=== PATIENT | female | born 1975 | race Caucasian/White ===

== ENCOUNTER → 2019-08-08 08:21 | Outpatient (BNVA) | payer BC, SELFPAY | PROVIDERS: Family Provider Family Medicine; PCP Family Medicine; Visit Provider Family Medicine | DX: R30.0 Dysuria (principal); Z13.6 Encounter for screening for cardiovascular disorders; F40.10 Social phobia, unspecified; F17.219 Nicotine dependence, cigarettes, with unspecified nicotine-induced disorders; E55.9 Vitamin D deficiency, unspecified | CPT/HCPCS: 80053; 80061; 81000; 82306; 85025; 87077; 87086; 87186 ==

== ENCOUNTER → 2019-09-22 16:30 | Outpatient (BNVA) | payer BC, SELFPAY | PROVIDERS: Family Provider Family Medicine; PCP Family Medicine; Referring Provider Family Medicine; Visit Provider Family Medicine | DX: Z13.6 Encounter for screening for cardiovascular disorders (principal) | CPT/HCPCS: 80053 ==

== ENCOUNTER → 2019-11-03 11:00 | Outpatient (BNVA) | payer BC, SELFPAY | PROVIDERS: Family Provider Family Medicine; PCP Family Medicine; Referring Provider Family Medicine; Visit Provider Family Medicine | DX: E55.9 Vitamin D deficiency, unspecified (principal); E78.00 Pure hypercholesterolemia, unspecified | CPT/HCPCS: 80053; 80061; 82652 ==

== ENCOUNTER 2019-11-26 15:01 | Outpatient (CLI) | payer BC, SELFPAY ==
--- NOTE | 2019-11-26 15:30 | MM_ITS ---
WS: [id number] SCREENING DIGITAL MAMMOGRAM WITH CAD HISTORY: screening COMPARISON: None available. Bilateral CC and MLO views submitted. Computer aided detection analyzed. Breast composition: The breasts are heterogeneously dense, which may obscure small masses. There is a n asymmetry measuring 14 mm in the superior LEFT breast on the MLO projection only. Otherwise no susp icious masses or calcifications. LEFT breast: Spot compression views (exaggerated lateral CC and MLO). True ML. Ultrasound to follow i f abnormality persists. MM/[id number] IMPRESSION: BI-RADS: 0-Incomplete: Need additional imaging evaluation FOLLOW UP: Need Additional Imaging
== END 2019-11-26 15:02 | disposition home or self-care (01) ==
LOC: RADSHAW 15:05
PROVIDERS: PCP Family Medicine; Visit Provider Obstetrics & Gynecology
DX: Z12.31 Encounter for screening mammogram for malignant neoplasm of breast (principal); N64.89 Other specified disorders of breast
CPT/HCPCS: 77067

== ENCOUNTER 2019-12-05 14:12 | Outpatient (CLI) | payer BC, SELFPAY ==
--- NOTE | 2019-12-05 14:30 | MM_ITS ---
WS: [id number] Left breast diagnostic digital mammogram, 12/05/2019 Clinical Data: abnormal mammogram Comparison: 11/26/2019 Findings: There is an asymmetry in the superior aspect of the left breast. On the CC and ML views this asymmetr y appears to be linear. There are no associated calcifications or spiculations. MM/[place] [id number] Impression: 1. Asymmetry in upper outer quadrant of the left breast but no focal mass. 2. Left breast ultrasound will be done. BIRADS: 2-Benign FOLLOW UP: See Report The CAD fact checker was used.
--- NOTE | 2019-12-05 15:45 | US_ITS ---
WS: [id number] Left breast ultrasound, 12/05/2019 Clinical Data: abnormal mammogram Comparison: Mammogram, 12/05/2019 Findings: In the upper-outer quadrant of the left breast there are no definite masses. There is a simple cyst w ith greatest dimension of 0.71 cm. No definite abnormalities are seen. US/US breast LT limited* [id number] Impression: 1. Simple cyst in upper outer quadrant of left breast corresponding to the rigo on noted on the mammogram 2. Return to annual screening mammograms. BIRADS: 2-Benign FOLLOW UP: 1 Year Follow-up
== END 2019-12-05 14:13 | disposition home or self-care (01) ==
LOC: RADSHAW 14:16
PROVIDERS: PCP Family Medicine; Visit Provider Obstetrics & Gynecology
DX: R92.8 Other abnormal and inconclusive findings on diagnostic imaging of breast (principal); N60.02 Solitary cyst of left breast
CPT/HCPCS: 76642; 77065

== ENCOUNTER → 2020-05-12 14:35 | Outpatient (BNVA) | payer BC, SELFPAY | PROVIDERS: PCP Family Medicine; Visit Provider Nurse Practitioner Family | DX: Z20.828 Contact with and (suspected) exposure to other viral communicable diseases (principal) | CPT/HCPCS: 87635 ==

== ENCOUNTER 2020-05-28 06:00 | Outpatient (RCR) | payer BC, SELFPAY | END 2020-06-21 23:59 | disposition home or self-care (01) | LOC: MPT 06:00 | PROVIDERS: PCP Family Medicine; Referring Provider Family Medicine; Visit Provider Family Medicine | DX: M54.42 Lumbago with sciatica, left side (principal); G89.29 Other chronic pain | CPT/HCPCS: 97110; 97140; 97161; 97530 ==

== ENCOUNTER 2020-06-22 06:00 | Outpatient (RCR) | payer BC, SELFPAY | END 2020-07-22 23:59 | disposition home or self-care (01) | LOC: MPT 06:00 | PROVIDERS: PCP Family Medicine; Referring Provider Family Medicine; Visit Provider Family Medicine | DX: M54.42 Lumbago with sciatica, left side (principal); G89.29 Other chronic pain | CPT/HCPCS: 97530 ==

== ENCOUNTER → 2020-07-28 08:20 | Outpatient (BNVA) | payer BC, SELFPAY | PROVIDERS: PCP Family Medicine; Visit Provider Family Medicine | DX: E78.5 Hyperlipidemia, unspecified (principal); F40.10 Social phobia, unspecified; M54.42 Lumbago with sciatica, left side; F17.219 Nicotine dependence, cigarettes, with unspecified nicotine-induced disorders; G89.29 Other chronic pain | CPT/HCPCS: 80053 ==

== ENCOUNTER → 2020-09-23 14:00 | Outpatient (BNVA) | payer BC, SELFPAY | PROVIDERS: PCP Family Medicine; Visit Provider Obstetrics & Gynecology | DX: Z12.4 Encounter for screening for malignant neoplasm of cervix (principal); Z12.39 Encounter for other screening for malignant neoplasm of breast | CPT/HCPCS: 88175 ==

== ENCOUNTER 2020-11-27 10:08 | Outpatient (CLI) | payer BC, SELFPAY ==
--- NOTE | 2020-11-27 10:30 | MM_ITS ---
WS: [id number] BILATERAL DIGITAL SCREENING MAMMOGRAPHY WITH CAD CLINICAL INFORMATION: Z12.39 - Encounter for other screening for malignant neop... HISTORY: Screening mammogram. No current complaints. COMPARISON: December 05, 2019 TECHNIQUE: Bilateral CC and MLO views. FINDINGS: The breasts are composed of heterogeneous fibroglandular density tissue, which can limit the detectio n of small underlying mass lesions. No suspicious mass, asymmetry, calcifications, or architectural d istortion. No evidence of malignancy. MM/[place] [id number] IMPRESSION: BI-RADS: 1-Negative FOLLOW UP: 1 Year Follow-up Recommend return to annual screening mammography.
== END 2020-11-27 10:09 | disposition home or self-care (01) ==
LOC: RADSHAW 10:11
PROVIDERS: PCP Family Medicine; Visit Provider Obstetrics & Gynecology
DX: Z12.31 Encounter for screening mammogram for malignant neoplasm of breast (principal)
CPT/HCPCS: 77067

== ENCOUNTER → 2021-06-18 08:43 | Outpatient (BNVA) | payer BC, SELFPAY | PROVIDERS: PCP Family Medicine; Visit Provider Family Medicine | DX: E55.9 Vitamin D deficiency, unspecified (principal); E78.5 Hyperlipidemia, unspecified | CPT/HCPCS: 80053; 80061; 82306; 85025 ==

== ENCOUNTER → 2021-11-30 12:26 | Outpatient (BNVA) | payer BC, SELFPAY | PROVIDERS: PCP Family Medicine; Visit Provider Emergency Medicine | DX: R69 Illness, unspecified (principal); B34.9 Viral infection, unspecified | CPT/HCPCS: 87071; 87426; 87880 ==

== ENCOUNTER → 2021-12-17 08:48 | Outpatient (BNVA) | payer BC, SELFPAY | PROVIDERS: PCP Family Medicine; Visit Provider Family Medicine | DX: E78.5 Hyperlipidemia, unspecified (principal); E55.9 Vitamin D deficiency, unspecified; Z86.39 Personal history of other endocrine, nutritional and metabolic disease; R53.83 Other fatigue; Z12.31 Encounter for screening mammogram for malignant neoplasm of breast; F40.10 Social phobia, unspecified; G89.29 Other chronic pain; M54.42 Lumbago with sciatica, left side; H69.82 Other specified disorders of Eustachian tube, left ear; K21.9 Gastro-esophageal reflux disease without esophagitis | CPT/HCPCS: 80053; 82306; 84443 ==

== ENCOUNTER → 2022-06-27 09:04 | Outpatient (BNVA) | payer BC, SELFPAY | PROVIDERS: PCP Family Medicine; Visit Provider Family Medicine | DX: E78.5 Hyperlipidemia, unspecified (principal); D50.9 Iron deficiency anemia, unspecified; F50.89 Other specified eating disorder; Z86.39 Personal history of other endocrine, nutritional and metabolic disease | CPT/HCPCS: 80053; 80061; 82306; 82728; 83550; 85025 ==

== ENCOUNTER 2022-07-07 10:40 | Outpatient (CLI) | payer BC, SELFPAY ==
--- NOTE | 2022-07-07 10:53 | MM_ITS ---
WS: [id number] BILATERAL SCREENING DIGITAL TOMOSYNTHESIS MAMMOGRAM WITH CAD HISTORY: screening mammogram COMPARISON: 11/27/2020, 11/26/2019 Bilateral CC and MLO views with tomosynthesis and synthetic mammography submitted. Computer aided det ection analyzed. Breast composition: There are scattered areas of fibroglandular density. No suspicious masses, microc alcifications or architectural distortion. Well-circumscribed nodule anterior RIGHT breast towards 9: 00 stable since 11/26/2019. MM/[place] [id number] IMPRESSION: BI-RADS: 2-Benign FOLLOW UP: 1 Year Follow-up
== END 2022-07-07 10:41 | disposition home or self-care (01) ==
LOC: RAD 10:44
PROVIDERS: PCP Family Medicine; Visit Provider Family Medicine
DX: Z12.31 Encounter for screening mammogram for malignant neoplasm of breast (principal)
CPT/HCPCS: 77063; 77067; 80053; 80061; 82306; 82728; 83550; 85025

== ENCOUNTER → 2022-11-25 12:10 | Outpatient (BNVA) | payer BC, SELFPAY | PROVIDERS: PCP Family Medicine; Visit Provider Family Medicine | DX: D50.9 Iron deficiency anemia, unspecified (principal); E78.5 Hyperlipidemia, unspecified; K21.9 Gastro-esophageal reflux disease without esophagitis | CPT/HCPCS: 82728; 83550; 85025 ==

== ENCOUNTER 2023-01-20 08:57 | Day surgery (SDC) | payer BC, SELFPAY ==
[2023-01-18 12:16] VITALS: BMI 22.9
[2023-01-20 09:19] LABS: OR HCG Qualitative Urine Negative (Negative)
[2023-01-20 09:21] VITALS: BP 125/90; PULSE 80; RESP 18; TEMP 36.6; O2SAT 94
[2023-01-20] MEDS: sodium chloride 0.9% 1,000 ML 30 ML IV (09:28)
--- NOTE | 2023-01-20 09:48 | ANES.PREANE2 ---
Pre-Anesthetic Assessment Height/Weight: Height 1.78 m Weight 72.575 kg Temp Pulse Resp BP Pulse Ox O2 Del Method 97.8 F 80 18 125/90 94 Room Air 01/20/23 09:21 01/20/23 09:21 01/20/23 09:21 01/20/23 09:21 01/20/23 09:21 01/20/23 09:21 Preop Diagnosis: gerd, screening Operation Date: 01/20/23 10:00 Proposed Procedures p Colonoscopy 51417 egd 23514 K21.9,Z12.11(Not Applicable) - Carlos Manuel Phillips DO s EGD(Not Applicable) - Carlos Manuel Phillips DO Was Beta Isreal taken within 24 hours: N/A Was Clonidine taken within 24 hours: N/A Last intake: Intake Last Liquid Date 01/19/23 Last Liquid Time 20:00 Last Solid Date 01/18/23 Last Solid Time 20:00 Social Tobacco and No alcohol last cig last night Exam alert, oriented x 3, clear to auscultation bilaterally and regular rate & rhythm Airway Submandibular: within normal limits Cervical ROM: within normal limits Mallampati: Class I Comments: Comments: very poor d entition. missing many on the front left, prominent incisors History/ROS No significant history except as noted and No significant complaints Pulmonary smoking CV/HEM Hypertension None reported GI Gastroesophageal Reflux Disease Metabolic Thyroid Disease nodule lower right side Musc/skel None reported Neuropsych None reported Anesthetic Plan ASA status: 2 Anesthesia: Anesthesia Evaluation and MAC Risk of > 500 ml blood loss (7ml/kg in children): Yes, adequate IV access and fluids planned Medications/Allergies Home Medications Medication Instructions Recorded Confirmed Last Taken Type cholecalciferol (vitamin D3) 50 50 mcg PO DAILY 09/23/20 01/18/23 01/19/23 History mcg (2,000 unit) capsule duloxetine 60 mg capsule,delayed 60 mg PO DAILY #90 caps 10/14/22 01/18/23 01/19/23 Rx release omeprazole 40 mg capsule,delayed 40 mg PO DAILY #90 caps 11/25/22 01/18/23 01/19/23 Rx release atorvastatin 10 mg tablet 10 mg PO DAILY 01/18/23 01/18/23 01/19/23 History cetirizine 10 mg tablet (Zyrtec) 10 mg PO DAILY 09/01/18/23 01/19/23 History ferrous sulfate 325 mg (65 mg 65 mg PO DAILY 01/18/23 01/18/23 01/19/23 History iron) capsule,extended release Allergies Allergy/AdvReac Type Severity Reaction Status Date / Time No Known Allergies Allergy Verified 01/20/23 09:13 Current Medications Generic Name Dose Route Start Last Admin Trade Name Daniel PRN Reason Stop Dose Admin Sodium Chloride 1,000 mls @ 30 mls/hr 01/20/23 09:15 01/20/23 09:28 Sodium Chloride 0.9% IV 01/21/23 09:14 30 mls/hr .Q24H OPAL Administration PFSH Anesthesia Medical History Dyslipidemia Diagnosed in 2019 and is on medication managed by her primary care provider No pertinent past medical history Denies diabetes, asthma, hypertension, seizures, DVT/PE Her primary care provider is Dr. Wood. Social anxiety disorder Diagnosed in 2014 and symptoms of anxiety are controlled with medication managed by her primary care provider. She does not see a therapist. Thyroid nodule Has had a thyroid nodule identified since about 2017. She follows up with an case management manager in [place]-Dr. Tucker(first name). She was told she does not need any further follow-up and that everything is stable. Surgical History S/P LEEP LEEP procedure performed by Dr. Garcia for abnormal Pap smear---2003. Patient does not know details of this surgery or pathology however states that she was told she can do routine testing. S/P tubal ligation Laparoscopic procedure in 2009. Family History Mother Diabetes Hypertension Grandmother Stroke maternal Father Hyperlipidemia Denies family history of Colon cancer Ovarian cancer Heart disease Breast cancer Uterine cancer Thyroid condition Social History Smoking and tobacco status: current every day smoker (0.5ppd) cigarettes Packs smoked per day: 0.5 Alcohol intake: current Substance/Drug Use: unknown Female Reproductive History Date of last menstrual period: 12/29/22 Spontaneous abortions: No Data Anesthesia Cardiac Studies: No Data to Display
--- NOTE | 2023-01-20 10:00 | W.PM.OPSUD ---
Surgery/Procedure H&P Update DATE OF PROCEDURE: January 20, 2023 DATE H&P PERFORMED: 01/03/23 H&P UPDATE INFORMATION: I have reviewed H&P completed within last 30 days, I have examined patient prior to procedure and No changes to prior documentation PREOP DIAGNOSIS: gerd, screening PLANNED PROCEDURE: Operation Date: 01/20/23 10:00 Proposed Procedures p Colonoscopy [id number] egd 32990 K21.9,Z12.11(Not Applicable) - DO feroz Rodriguez EGD(Not Applicable) - Carlos Manuel Phillips DO
[2023-01-20 10:29] VITALS: BP 92/59; PULSE 75; RESP 14; TEMP 36.3; O2SAT 92
[2023-01-20 10:38] VITALS: BP 102/87; PULSE 89; RESP 16; O2SAT 94
[2023-01-20 10:46] VITALS: BP 106/74; PULSE 90; RESP 14; O2SAT 97
--- NOTE | 2023-01-20 13:36 | ANE.PACU2 ---
Inpatient post-anesthesia follow up: Airway intact: Yes Vital signs: Temperature 97.3 F Pulse Rate 90 Respiratory Rate 14 Blood Pressure 106/74 Pulse Oximetry 97 Oxygen Delivery Me thod Room Air Oxygen Flow Rate Fraction of Inspir ed Oxygen Hydration adequate: Yes Nausea and vomiting: No Pain level: 2 Mental status: Baseline
== END 2023-01-20 10:57 | disposition home or self-care (01) ==
PROVIDERS: PCP Family Medicine; Visit Provider Surgery
PROC: 0DJD8ZZ Inspection of Lower Intestinal Tract, Via Natural or Artificial Opening Endoscopic (ICD-10-PCS; CPT 45378; principal; 2023-01-20 10:00)
PROC: 0DJ08ZZ Inspection of Upper Intestinal Tract, Via Natural or Artificial Opening Endoscopic (ICD-10-PCS; CPT 43235; 2023-01-20 10:00)
DX: Z12.11 Encounter for screening for malignant neoplasm of colon (principal); K64.8 Other hemorrhoids; K57.30 Diverticulosis of large intestine without perforation or abscess without bleeding; K21.00 Gastro-esophageal reflux disease with esophagitis, without bleeding; I10 Essential (primary) hypertension; E78.5 Hyperlipidemia, unspecified; F17.210 Nicotine dependence, cigarettes, uncomplicated
CPT/HCPCS: 43239; 45378; 81025; 84703; 88305; J2704; J3010; J7030

== ENCOUNTER → 2023-05-30 08:50 | Outpatient (BNVA) | payer OTHER, SELFPAY | PROVIDERS: PCP Family Medicine; Visit Provider Family Medicine | DX: D50.9 Iron deficiency anemia, unspecified (principal); D50.8 Other iron deficiency anemias; E78.5 Hyperlipidemia, unspecified | CPT/HCPCS: 80053; 80061; 82728; 83550; 85025 ==

== ENCOUNTER → 2023-06-10 11:50 | Outpatient (BNVA) | payer OTHER, SELFPAY | PROVIDERS: PCP Family Medicine; Visit Provider Nurse Practitioner Family | DX: N39.0 Urinary tract infection, site not specified (principal) | CPT/HCPCS: 81000; 87077; 87086; 87184 ==

== ENCOUNTER 2023-07-11 08:00 | Outpatient (CLI) | payer OTHER, SELFPAY ==
--- NOTE | 2023-07-11 08:04 | MM_ITS ---
WS: [id number] SCREENING DIGITAL TOMOSYNTHESIS MAMMOGRAM WITH CAD HISTORY: screening COMPARISON: 07/07/2022 and 11/27/2020 Bilateral CC and MLO with tomosynthesis views submitted. Synthetic mammography reviewed. Computer aid ed detection analyzed. Breast composition: The breasts are heterogeneously dense, which may obscure small masses. No suspici ous masses, microcalcifications or architectural distortion. IMPRESSION: MM/[place] [id number] BI-RADS: 1-Negative FOLLOW UP: 1 Year Follow-up
== END 2023-07-11 08:01 | disposition home or self-care (01) ==
LOC: RAD 08:01
PROVIDERS: PCP Family Medicine; Visit Provider Family Medicine
DX: Z12.31 Encounter for screening mammogram for malignant neoplasm of breast (principal)
CPT/HCPCS: 77063; 77067

== ENCOUNTER → 2023-09-29 13:43 | Outpatient (BNVA) | payer OTHER, BC, SELFPAY | PROVIDERS: PCP Family Medicine; Visit Provider Emergency Medicine | DX: J02.9 Acute pharyngitis, unspecified (principal) | CPT/HCPCS: 87071; 87880 ==

== ENCOUNTER → 2023-12-11 14:14 | Outpatient (BNVA) | payer BC, SELFPAY | PROVIDERS: Visit Provider Physician Assistant | DX: J02.9 Acute pharyngitis, unspecified (principal) | CPT/HCPCS: 87880 ==

== ENCOUNTER → 2024-06-03 10:30 | Outpatient (BNVA) | payer BC, SELFPAY | DX: F40.10 Social phobia, unspecified (principal); E78.5 Hyperlipidemia, unspecified; Z86.39 Personal history of other endocrine, nutritional and metabolic disease; E04.1 Nontoxic single thyroid nodule; D50.8 Other iron deficiency anemias | CPT/HCPCS: 80053; 80061; 82306; 83550; 84439; 84443; 84481; 85025 ==

== ENCOUNTER → 2024-06-24 08:26 | Outpatient (BNVA) | payer BC, SELFPAY | PROVIDERS: Visit Provider Obstetrics & Gynecology | DX: N92.6 Irregular menstruation, unspecified (principal) | CPT/HCPCS: 76830 ==

== ENCOUNTER 2024-11-08 11:44 | Emergency (ER) | payer BC, SELFPAY ==
[2024-11-08 11:53] VITALS: BP 138/97; PULSE 80; RESP 17; TEMP 36.9; O2SAT 98; BMI 25.9
--- OUTSIDE RECORDS SUMMARY | 2024-11-08 11:54 | XMS_ITS | Clinical Summary ---
Author Organization [facility] Address [address] [place] [address] Phone Care Team Providers Care Grounds Keeper Name Role Phone Burke Baker Primary Care Provider +1- [phone] Allergies No known active allergies Medications vit-iron fumarate-fa () 28-0.8 mg Oral Tab Take 1 Tab by mouth daily. Active ferrous sulfate 325 mg (65 mg Iron) Oral tablet Take 1 Tab by mouth daily. 100 Tab 0 0 Active ibuprofen (MOTRIN) 800 mg Oral tablet Take 1 Tab by mouth every 8 hours as needed for Pain. 30 Tab 0 0 Active citalopram (CeleXA) 20 mg tablet Take 20 mg by mouth daily. Active ergocalciferol (VITAMIN D2) 50,000 unit capsuleIndicat ions:Hypovitam inosis D Take 1 capsule 50,000 international units PO q Week x 8 weeks Followed by 1 capsule monthly 9 Capsule 9 Active atorvastatin (LIPITOR) 10 mg tablet Take 10 mg by mouth daily with supper. 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 Social History Tobacco Use Types Packs/Day Years Used Date Smoking Tobacco: Every Day Cigarettes Alcohol Use Standard Drinks/Week Comments No 0 (1 standard drink = 0.6 oz pur e alcohol) Comments No Sex and Gender Information Value Date Recorded Sex Assigned at Not on file Legal Sex Female 5:03 AM CERAMIC MAKER DEMONSTRATOR Gender Identity Not on file Sexual Orientation Not on file Last Filed Vital Signs Vital Sign Reading Time Taken Comments Blood Pressure 122/70 08/20/2019 2:01 PM CDT Pulse 78 08/20/2019 2:01 PM CDT Temperature 36.8 C (98.2 F) 06/21/2009 10:50 AM CERAMIC MAKER DEMONSTRATOR Respiratory Rate 16 06/21/2009 7:40 AM CERAMIC MAKER DEMONSTRATOR Oxygen Saturation 97% 06/21/2009 7:40 AM CERAMIC MAKER DEMONSTRATOR Inhaled Oxygen Concentration - - Weight 71.7 kg (158 lb) 08/20/2019 2:01 PM CDT Height 180.3 cm (5' 11 ) 08/20/2019 2:01 PM CDT Body Mass Index 22.04 08/20/2019 2:01 PM CDT Plan of Treatment Health Maintenance Due Date Last Done Comments DTAP/TDAP/TD VACCINES (1 - Tdap) 10/07/1994 HEPATITIS B VACCINES (1 of 3 - 19+ 3-dose series) 09/22 HPV/Cotest (21-29) 10/07/1996 CERVICAL CANCER SCREENING 10/07/2005 HPV/Cotest (30-65) 10/07/2005 PAP SMEAR 10/07/2005 BREAST CANCER SCREENING 2015 COLORECTAL SCREENING 10/07/2020 Colorectal Cancer Screening 10/07/2020 FIT-DNA Q 3 years 10/07/2020 FIT/FOBT Q 1 year 10/07/2020 Flex Sig/CT Colonography Q 5 years 10/07/2020 INFLUENZA VACCINE (#1) 2024 [id number] For more information, please contact: [phone] * Full Code (Latest Code Status on File) Date Activated Date Inactivated Comments 06/19/2009 3:54 PM 06/21/2009 2:07 PM * Full Code Date Activated Date Inactivated Comments 06/19/2009 8:22 AM 06/19/2009 3:54 PM Care Teams Grounds Keeper Relationship Specialty Start Date End Date Burke Baker DO [address] [place] [address] PCP - General 12/03/02
--- OUTSIDE RECORDS SUMMARY | 2024-11-08 11:54 | XMS_ITS | Encounter Summary ---
Author Organization [facility] Address [address] [place]: [place] [id number] Care Team Providers Care Relationship Executive Name Role Phone Burke Baker DO Primary Care Provider +1- [phone] Encounter Details Date Type Department Care Team (Late st Contact Info) Description 08/21/2001 Outpatient Historical Ramona Arreguin, Jerome Crespo MD [address] [place] [address] Social History Tobacco Use Types Packs/Day Years Used Date Smoking Tobacco: Never Assessed Comments Unknown Sex and Gender Information Value Date Recorded Sex Assigned at Not on file Legal Sex Female 5:03 AM SHIP/REC/DOC CONTROL Gender Identity Not on file Sexual Orientation Not on file documented as of this encounter Plan of Treatment Not on file documented as of this encounter Visit Diagnoses Not on filedocumented in this encounter Care Teams Relationship Executive Relationship Specialty Start Date End Date Burke Baker DO [address] [place] [id number] PCP - General 12/03/02 documented as of this encounter
--- OUTSIDE RECORDS SUMMARY | 2024-11-08 11:54 | XMS_ITS | Encounter Summary ---
Author Organization [facility] Address [address] [place] [address] Care Team Providers Care Lamp Tester And Inspector Name Role Phone Burke Baker DO Primary Care Provider +1- [phone] Encounter Details Date Type Department Care Team (Latest Contact Info) Description 12/03/2002 Outpatient Historical [facility] [address] [place] [phone] Burke Baker DO [address] [place] [address] JOINT PAIN-L/LEG (Primary Dx) Social History Tobacco Use Types Packs/Day Years Used Date Smoking Tobacco: Never Assessed Comments Unknown Sex and Gender Information Value Date Recorded Sex Assigned at Not on file Legal Sex Female 5:03 AM MANAGER MARITIME Gender Identity Not on file Sexual Orientation Not on file documented as of this encounter Plan of Treatment Not on file documented as of this encounter Visit Diagnoses Diagnosis Pain in joint, lower leg- Primary documented in this encounter Care Teams Lamp Tester And Inspector Relationship Specialty Start Date End Date Burke Baker DO [address] [place] [address] PCP - General 12/03/02 documented as of this encounter
--- OUTSIDE RECORDS SUMMARY | 2024-11-08 11:54 | XMS_ITS | Encounter Summary ---
Author Organization [facility] Address [address] 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
--- OUTSIDE RECORDS SUMMARY | 2024-11-08 11:54 | XMS_ITS | Clinical Summary ---
Author Organization [facility] Address [address]: [place] [address] Care Team Providers Care Animal Nursery Worker Name Role Phone Burke Baker Primary Care Provider +1- [phone] Allergies No known active allergies Medications ergocalciferol (VITAMIN D2) 50,000 unit capsuleIndicat ions:Hypovitam inosis D Take 1 capsule 50,000 international units PO q Week x 8 weeks Followed by 1 capsule monthly 9 Capsule 0 9 Active atorvastatin (LIPITOR) 10 mg tablet Take 10 mg by mouth daily with supper. 0 Active citalopram (CeleXA) 20 mg tablet Take 20 mg by mouth daily. 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 Social History Tobacco Use Types Packs/Day Years Used Date Smoking Tobacco: Every Day Cigarettes Alcohol Use Standard Drinks/Week Comments No 0 (1 standard drink = 0.6 oz pur e alcohol) Comments Unknown Sex and Gender Information Value Date Recorded Sex Assigned at Not on file Legal Sex Female 12:03 AM COYOTE HUNTER Gender Identity Not on file Sexual Orientation Not on file Last Filed Vital Signs Vital Sign Reading Time Taken Comments Blood Pressure 122/70 08/20/2019 2:01 PM CDT Pulse 78 08/20/2019 2:01 PM CDT Temperature - - Respiratory Rate - - Oxygen Saturation - - Inhaled Oxygen Concentration - - Weight 71.7 [...] 5 years 10/07/2020 INFLUENZA VACCINE (#1) 2024 Care Teams Animal Nursery Worker Relationship Specialty Start Date End Date Burke Baker DO [address] [place] [address] PCP - General 12/03/02
--- OUTSIDE RECORDS SUMMARY | 2024-11-08 11:54 | XMS_ITS | Encounter Summary ---
Author Organization [facility] Address [address] [place] [address] Care Team Providers Care Impregnator And Drier Helper Name Role Phone Burke Baker DO Primary Care Provider +1- [phone] Encounter Details Date Type Department Care Team (Latest Contact Info) Description 08/28/2002 Outpatient [facility] [place] [phone] Karthik Zepeda, GARRETT NO ADDRESS ON FILE UNSPEC DENTAL CARIES (Primary Dx) Social History Tobacco Use Types Packs/Day Years Used Date Smoking Tobacco: Never Assessed Comments Unknown Sex and Gender Information Value Date Recorded Sex Assigned at Not on file Legal Sex Female 5:03 AM CAR RETARDER OPERATOR Gender Identity Not on file Sexual Orientation Not on file documented as of this encounter Plan of Treatment Not on file documented as of this encounter Visit Diagnoses Diagnosis Unspecified dental caries- Primary documented in this encounter Care Teams Impregnator And Drier Helper Relationship Specialty Start Date End Date Burke Baker DO [address] [place] [address] PCP - General 12/03/02 documented as of this encounter
--- OUTSIDE RECORDS SUMMARY | 2024-11-08 11:54 | XMS_ITS | Encounter Summary ---
Author Organization [facility] Address [address] [place] [address] Care Team Providers Care Instrument Worker Name Role Phone Burke Baker DO Primary Care Provider +1- [phone] Encounter Details Date Type Department Care Team (Latest Contact Info) Description 07/17/2001 Outpatient Historical [facility] [address] [place] [phone] Radha Terry MD NO ADDRESS ON FILE NONTOX UNINODULAR GOITER (Primary Dx) Social History Tobacco Use Types Packs/Day Years Used Date Smoking Tobacco: Never Assessed Comments Unknown Sex and Gender Information Value Date Recorded Sex Assigned at Not on file Legal Sex Female 5:03 AM GOLF CLUB ASSEMBLER Gender Identity Not on file Sexual Orientation Not on file documented as of this encounter Plan of Treatment Not on file documented as of this encounter Visit Diagnoses Diagnosis Nontoxic uninodular goiter- Primary documented in this encounter Care Teams Instrument Worker Relationship Specialty Start Date End Date Burke Baker DO [address] [place] [address] PCP - General 12/03/02 documented as of this encounter
[2024-11-08 13:21] LABS: Hematocrit 42.6 % (36-47); Hemoglobin 13.70 g/dL (11.27-16.99); Mean Corpuscular HGB Conc 32.2 g/dL (30-55); Mean Corpuscular Hemoglobin 29.0 pg (27-33); Mean Corpuscular Volume 90.3 fl (85-98); Nucleated Red Blood Cells % 0 %; Platelet Count 326 10^3/cmm (157-399); Red Blood Count 4.72 10^6/uL (3.85-5.65); White Blood Count 8.15 10^3/uL (3.29-11.43)
--- NOTE | 2024-11-08 13:23 | CT_ITS ---
WS: [id number] CT ABDOMEN PELVIS TECHNIQUE: Contrast-enhanced CT of the abdomen and pelvis with coronal and sagittal reformatted images. CLINICAL INFORMATION: R sided abdominal pain, nausea COMPARISON: None. DLP: 761.[address] scans at [facility] use at least one of these dose optimization techniques: automated exposure control; mA and/or kV adjustment per patient size (includes targeted exams where dose is matched to clinical indication); or iterative reconstruction. FINDINGS: Fatty liver. Normal gallbladder. Tiny hepatic cyst. Normal portal vein and splenic vein. Normal pancreatic parenchymal enhancement. Normal spleen. Normal GE junction. Adrenal glands are normal. Normal renal parenchymal enhancement. No hydronephrosis. Normal caliber abdominal aorta. Celiac and SMA are patent. Small fat-containing umbilical hernia. Mild transverse colon constipation. Retroverted uterus. Endometrial thickening with small enhancing endometrial polypoid lesion. Recommend further evaluation with ultrasound and/or hysteroscopy. Small enhancing lesion measures approximately 1.5 cm. Suspected LEFT hydrosalpinx with a small amount of fluid in the cul-de-sac. Some amount of fluid in the RIGHT adnexa. LEFT ovarian cyst measuring 1.5 cm. Hydrosalpinx was previously seen on 06/24/[address]/CT abdomen pelvis w con* [id number] IMPRESSION: 1. No hydronephrosis in either kidney. 2. Fatty liver. 3. Appendix is not visualized but no evidence of acute appendicitis 4. Mild RIGHT colon and transverse colon constipation. 5. LEFT ovarian cyst measuring 1.5 cm. LEFT hydrosalpinx. Trace fluid in the c ul-de-sac. 6. Small enhancing polypoid lesion in the endometrium at the uterine fundus. T his can be followed up with hysteroscopy and/or ultrasound. This measures appro ximate 1.5 cm
--- NOTE | 2024-11-08 13:23 | W.ED.ABDPA2 ---
HPI - Abdominal Pain General: Chief Complaint: Abdominal Pain Stated Complaint: Sent By [facility] right side abdominal pain Time Seen by Provider: 11/08/24 13:05 Source: patient Mode of arrival: ambulatory Limitations: no limitations History of Present Illness: Patient is a 49-year-old female presents to ED today with complaint of right-sided abdominal pain starting early this morning. She states pain has been persistent all day. She was reportedly seen by her PCP and referred to the emergency department due to concern for acute appendicitis. Patient does feel like her pain is somewhat improved upon arrival now. Vital signs are stable. She has felt slightly nauseous but has not had any episodes of emesis. She has not noted any changes in bowel movements. No fevers. MD elicited complaint: abdominal pain Pertinent past history: none Onset (ago): hour(s) Pain Consistency: constant Location: RLQ Severity: moderate Radiation: none Migration to: no migration Exacerbating factors: nothing Relieving factors: nothing Associated Symptoms: Reports nausea; Denies change in bowel habits, chills, diarrhea, dysuria, fever(s) and vomiting Related Data Home Medications ?Medication ?Instructions ?Recorded ?Confirmed cholecalciferol (vitamin D3) 50 50 mcg PO DAILY 09/23/20 11/08/24 mcg (2,000 unit) capsule cetirizine 10 mg tablet (Zyrtec) 10 mg PO DAILY 01/18/23 11/08/24 Previous Rx's ?Medication ?Instructions ?Recorded duloxetine 60 mg capsule,delayed See Rx Instructions .Route 06/03/24 release .COMPLEX #90 caps atorvastatin 10 mg tablet 10 mg PO DAILY #90 tabs 06/04/24 Allergies Allergy/AdvReac Type Severity Reaction Status Date / Time No Known Allergies Allergy Verified 11/08/24 10:42 Review of Systems Const: Denies: fever(s), chills, body aches, fatigue or malaise Card: Denies: chest pain Resp: Denies: dyspnea GI: Reports: abdominal pain and nausea; Denies: vomiting, diarrhea or change in bowel habits : Denies: flank pain, difficulty voiding, dysuria, urinary frequency, urinary urgency or urinary hesitancy Musc: Denies: neck pain, back pain, extremity pain, extremity swelling, joint pain, joint swelling or joint redness Skin/Breast: Denies: rash Neuro: Denies: headache(s), numbness in extremities, weakness in extremities, sensory changes or dizziness PFS ED PFSH: Medical History Dyslipidemia Diagnosed in 2019 and is on medication managed by her primary care provider Thyroid nodule Has had a thyroid nodule identified since about 2017. She follows up with an engine repairer production in [place]-Dr. Tucker(first name). She was told she does not need any further follow-up and that everything is stable. No pertinent past medical history Denies diabetes, asthma, hypertension, seizures, DVT/PE Her primary care provider is Dr. Wood. Social anxiety disorder Diagnosed in 2014 and symptoms of anxiety are controlled with medication managed by her primary care provider. She does not see a therapist. Surgical History S/P LEEP LEEP procedure performed by Dr. Garcia for abnormal Pap smear---2003. Patient does not know details of this surgery or pathology however states that she was told she can do routine testing. S/P tubal ligation Laparoscopic procedure in 2009. Family History Mother Diabetes Hypertension Grandmother Stroke maternal Father Hyperlipidemia Denies family history of Colon cancer Ovarian cancer Heart disease Breast cancer Uterine cancer Thyroid disease Social History Smoking and tobacco/nicotine status: former use of tobacco/nicotine Alcohol intake: current Substance/Drug Use: never Adopted: No service: No Current occupational exposures/hazards: No Female Reproductive History: Spontaneous abortions: No Physical Exam Const: COMMON NORMALS: no acute distress, average body habitus, patient oriented x3, no limitations, healthy appearing, alert and well nourished GENERAL APPEARANCE: cooperative ORIENTATION/CONSCIOUSNESS: Yes awake, Yes oriented to person, Yes oriented to place and Yes oriented to time Eye: COMMON NORMALS: no scleral icterus Resp: COMMON NORMALS: normal respiratory effort and clear to auscultation bilaterally AUSCULTATION: clear to auscultation bilaterally Cardio: COMMON NORMALS: regular rate and regular rhythm RATE: regular rate RHYTHM: regular rhythm GI: COMMON NORMALS: Normal to inspection, nondistended, normoactive bowel sounds present, Soft to palpation, No hepatosplenomegaly present and no masses INSPECTION: Yes normal to inspection AUSCULTATION: Yes normoactive bowel sounds PALPATION: Yes Soft to palpation, Yes Tenderness to palpation present (GI) (tender throughout R abdomen; max tenderness RLQ), No Guarding due to palpation present (GI), No Rigid due to palpation and Yes No hepatosplenomegaly present : COMMON NORMALS: Yes no CVA tenderness BLADDER/KIDNEY EXAM: Yes no CVA tenderness Back/Pelvis: COMMON NORMALS: no CVA tenderness Neuro: COMMON NORMALS: patient oriented x3 SENSORIUM/ORIENTATION: Yes alert, Yes oriented to person, Yes oriented to place and Yes oriented to time Course Vital Signs: Vital signs: Vital Signs Temperature 98.4 F 11/08/24 11:53 Pulse Rate 80 11/08/24 11:53 Respiratory Rate 17 11/08/24 11:53 Blood Pressure 138/97 11/08/24 11:53 Pulse Oximetry 98 11/08/24 11:53 Oxygen Delivery Me thod Room Air 11/08/24 11:53 MDM - Abdominal Pain Medical Decision Making Patient clinically appears in no acute distress. Her vital signs are stable. Blood work is completely unremarkable. UA is clear. No acute abnormalities visualized on her CT abdomen/pelvis. She has mild constipation. Incidental findings in her pelvis that can be followed up outpatient with a hysteroscopy and/or ultrasound. Patient mare aware of these findings and will follow-up with her knotting machine operator portable. Return to ED precautions discussed. Medical Records I reviewed the patient's medical records. Lab Data I reviewed the patient's lab results. 11/08/24 13:14 11/08/24 13:14 Labs/Radiology: Radiology Impressions Abdomen/Pelvis CT 11/08/24 13:23 IMPRESSION: 1. No hydronephrosis in either kidney. 2. Fatty liver. 3. Appendix is not visualized but no evidence of acute appendicitis 4. Mild RIGHT colon and transverse colon constipation. 5. LEFT ovarian cyst measuring 1.5 cm. LEFT hydrosalpinx. Trace fluid in the cul-de-sac. 6. Small enhancing polypoid lesion in the endometrium at the uterine fundus. This can be followed up with hysteroscopy and/or ultrasound. This measures approximate 1.5 cm Laboratory Results WBC 8.15 10^3/uL (3.29-11.43) 11/08/24 13:14 RBC 4.72 10^6/uL (3.85-5.65) 11/08/24 13:14 Hgb 13.70 g/dL (11.27-16.99) 11/08/24 13:14 Hct 42.6 % (36-47) 11/08/24 13:14 MCV 90.3 fl (85-98) 11/08/24 13:14 MCH 29.0 pg (27-33) 11/08/24 13:14 MCHC 32.2 g/dL (30-55) 11/08/24 13:14 RDW 13.0 % (12.1-15.1) 11/08/24 13:14 Plt Count 326 10^3/cmm (157-399) 11/08/24 13:14 MPV 9.5 fL (7.4-10.4) 11/08/24 13:14 Neut % (Auto) 61.0 % 11/08/24 13:14 Lymph % (Auto) 26.1 % 11/08/24 13:14 [place] % (Auto) 7.5 % 11/08/24 13:14 Eos % (Auto) 3.6 % 11/08/24 13:14 Baso % (Auto) 1.6 % 11/08/24 13:14 Neut # (Auto) 4.97 10^3/uL (1.8-7.7) 11/08/24 13:14 Lymph # (Auto) 2.1 10^3/uL (0.8-4.8) 11/08/24 13:14 [place] # (Auto) 0.6 10^3/uL (0.2-0.9) 11/08/24 13:14 Eos # (Auto) 0.3 10^3/uL (0.0-0.8) 11/08/24 13:14 Baso # (Auto) 0.1 10^3/uL (0.0-0.1) 11/08/24 13:14 Nucleated RBC % (auto) 0 % 11/08/24 13:14 Nucleated RBCs # 0.0 /100WBC 11/08/24 13:14 Sodium 139 mmol/L (136-145) 11/08/24 13:14 Potassium 4.1 mmol/L (3.5-5.1) 11/08/24 13:14 Chloride 100 mmol/L (98-107) 11/08/24 13:14 Carbon Dioxide 26 mmol/L (22-29) 11/08/24 13:14 Anion Gap 17.1 (5-19) 11/08/24 13:14 BUN 9 mg/dL (6-20) 11/08/24 13:14 Creatinine 0.7 mg/dL (0.5-0.9) 11/08/24 13:14 GFR Calculation 88.9 mL/min (90-130) L 11/08/24 13:14 Glucose 98 mg/dL (65-115) 11/08/24 13:14 Calculated Osmolality 287 mOsm/kg (285-295) 11/08/24 13:14 Calcium 10.1 mg/dL (8.5-10.5) 11/08/24 13:14 Total Bilirubin 0.3 mg/dL (0.15-1.2) 11/08/24 13:14 AST 24 U/L (0-32) 11/08/24 13:14 ALT 30 U/L (0-33) 11/08/24 13:14 Alkaline Phosphatase 100 U/L (35-105) 11/08/24 13:14 Total Protein 7.3 g/dL (6.6-8.7) 11/08/24 13:14 Albumin 4.3 g/dL (3.5-5.2) 11/08/24 13:14 Globulin 3.0 g/dL (1.3-4.6) 11/08/24 13:14 Lipase 40 U/L (13-60) 11/08/24 13:14 HCG, Qual Negative (Negative) 11/08/24 13:14 Urine Color Yellow (Yellow) 11/08/24 13:52 Urine Appearance Clear (CLEAR) 11/08/24 13:52 Urine pH 6.5 (5-7) 11/08/24 13:52 Ur Specific [place] 1.008 (1.005-1.030) 11/08/24 13:52 Urine Protein Negative (Negative) 11/08/24 13:52 Urine Glucose (UA) Negative (Normal) 11/08/24 13:52 Urine Ketones Negative (Negative) 11/08/24 13:52 Urine Blood Negative (Negative) 11/08/24 13:52 Urine Nitrate Negative (Negative) 11/08/24 13:52 Urine Bilirubin Negative (Negative) 11/08/24 13:52 Urine Urobilinogen 0.2 mg/dL (Negative) 11/08/24 13:52 Ur Leukocyte Esterase Negative (Negative) 11/08/24 13:52 Urine RBC 0-2 /hpf (0-2) 11/08/24 13:52 Urine WBC 0-5 /hpf (0-5) 11/08/24 13:52 Ur Squamous Epith Cells 0-5 /hpf (0-5) 11/08/24 13:52 Amorphous Sediment Not Reportable 11/08/24 13:52 Urine Bacteria None seen /hpf (NONE) 11/08/24 13:52 Hyaline Casts 0-4 /lpf H 11/08/24 13:52 All radiology interpretation(s) finalized by discharge Discharge Plan Discharge Patient Disposition: Home Clinical Impression: Right sided abdominal pain Condition: Stable Prescriptions: No Action cholecalciferol (vitamin D3) 50 mcg (2,000 unit) capsule 50 mcg PO DAILY duloxetine 60 mg capsule,delayed release(DR/EC) See Rx Instructions .ROUTE .COMPLEX Qty: 90 1RF Dose Instruction: TAKE 1 CAPSULE BY MOUTH DAILY Rx Instructions: TAKE 1 CAPSULE BY MOUTH DAILY atorvastatin 10 mg tablet 10 mg PO DAILY Qty: 90 1RF cetirizine [Zyrtec] 10 mg Tablet 10 mg PO DAILY Discharge Orders: Discharge ED (Routine); Ordered 11/08/24 Ordered By: Karrie Maldonado Referrals: Kayla Prather NP [Primary Care Provider, Family Practice] Patient Instructions: Abdominal Pain (ED), Patient Portal & [facility] Instructions Activity Restrictions/Additional Instructions: As we discussed, your blood work and urine today were unremarkable. CT showing no acute abnormalities. There were some incidental findings in pelvic region that can be followed up with by your knotting machine operator portable. You may return to the emergency department at anytime for any further concerns you may have. I hope you begin to feel better soon. Print Language: Occitan Coding Level of Care Code ED American Sign Language Teacher for Randy Almanzar
[2024-11-08 13:36] LABS: HCG, Serum Qual Negative (Negative)
[2024-11-08 13:41] LABS: Alanine Aminotransferase 30 U/L (0-33); Albumin Level 4.3 g/dL (3.5-5.2); Alkaline Phosphatase 100 U/L (35-105); Anion Gap 17.1 (5-19); Aspartate Amino Transferase 24 U/L (0-32); Blood Urea Nitrogen 9 mg/dL (6-20); Calcium 10.1 mg/dL (8.5-10.5); Carbon Dioxide 26 mmol/L (22-29); Chloride 100 mmol/L (98-107); Creatinine Clr Calc Pharmacy 113.4774; Globulin 3.0 g/dL (1.3-4.6); Glucose 98 mg/dL (65-115); Lipase 40 U/L (13-60); Osmolality Calculated 287 mOsm/kg (285-295); Potassium 4.1 mmol/L (3.5-5.1); Sodium 139 mmol/L (136-145); Total Protein 7.3 g/dL (6.6-8.7)
[2024-11-08] MEDS: iohexol 350 mg/mL 500 mL Btl (per mL) IV (14:01)
[2024-11-08 14:11] LABS: Glucose Urine UA Negative (Normal); Nitrate Urine Negative (Negative); Specific Gravity, Urine 1.008 (1.005-1.030)
[2024-11-08 14:17] LABS: Add Urine Microscopic? YES
[2024-11-08 15:20] VITALS: BP 134/78; PULSE 66; RESP 18; O2SAT 99
== END 2024-11-08 15:21 | disposition home or self-care (01) ==
PROVIDERS: Emergency Provider Physician Assistant
DX: R10.9 Unspecified abdominal pain (principal); Z87.891 Personal history of nicotine dependence; E78.5 Hyperlipidemia, unspecified
CPT/HCPCS: 36415; 74177; 80053; 81001; 83690; 84703; 85025; 99285

== ENCOUNTER → 2024-12-02 13:53 | Outpatient (BNVA) | payer BC, SELFPAY | PROVIDERS: PCP Family Medicine; Visit Provider Family Medicine | DX: Z86.39 Personal history of other endocrine, nutritional and metabolic disease (principal); E55.9 Vitamin D deficiency, unspecified; D50.8 Other iron deficiency anemias; D50.9 Iron deficiency anemia, unspecified | CPT/HCPCS: 82306; 82728; 83550; 85025 ==

== ENCOUNTER 2024-12-09 14:32 | Outpatient (CLI) | payer BC, SELFPAY ==
--- NOTE | 2024-12-09 14:30 | USR_ITS ---
PROCEDURE INFORMATION: Exam: US Soft Tissue Head and Neck, Thyroid Exam date and time: 12/09/2024 2:50 PM Age: 49 years old Clinical indication: Condition or disease; Thyroid disorder; Other: Nodule; Additional info: Thyroid nodule TECHNIQUE: Imaging protocol: Real-time ultrasound scan of the neck with image documentation. Exam focused on the thyroid. COMPARISON: [place] thyroid [id number] 12/07/2018 9:42 AM FINDINGS: Right thyroid lobe: Diffuse heterogeneity. 8.2 cc volume. Mid lobe 3.0 x 2.7 x 2.4 cm complex nodule with internal cystic and solid areas, TR 3-4. Minimal internal vascularity. Adjacent to this there is a 1.3 x 1.2 x 1.4 cm predominantly cystic nodule. This contains some peripheral nodularity. No overt vascularity. Upper lobe contains a 9 x 8 x 11 mm solid nodule. Most are TR 2-3. Left thyroid lobe: Diffuse heterogeneity. 5.2 cc volume. Contains a solid nodule measuring 12 x 9 x 14 mm. Contains a lower pole 13 x 10 x 16 mm solid nodule. This is not particularly vascular. These are TR 2-3 nodules. Isthmus: No nodules. Lymph nodes: Small right cervical lymph node. Nonaggressive appearance. US/US thyroid [id number] IMPRESSION: 1. Numerous bilateral thyroid nodules, consistent with a multinodular goiter. 2. The dominant 3 cm one on the right would be considered TR 3-4. This could be considered for FNA if indicated. Compared to 12/07/2018, this does show mild growth. It previously measured up to about 2 cm. 3. Otherwise, consider 1 year follow-up for the remaining at least 4 nodules. COMMENTS: 1. Recommendations for TI-RADS scores are listed below for reference. (See Reference: Jaclyn) 2. TI-RADS 1, Benign. 0 points: No fine needle aspiration (FNA) or follow-up ultrasound recommended. 3. TI-RADS 2, Not suspicious. 2 points: No FNA or follow-up ultrasound recommended. 4. TI-RADS 3, Mildly suspicious. 3 points: FNA if equal or greater than 2.5 cm. Follow-up ultrasound if 1.5 to 2.4 cm in 1, 3, and 5 years. 5. TI-RADS 4, Moderately Suspicious. 4-6 points: FNA if equal or greater than 1.5 cm. Follow-up ultrasound if 1 to 1.4 cm in 1, 2, 3, and 5 years. 6. TI-RADS 5, Highly Suspicious. 7 points or greater: FNA if equal or greater than 1 cm. Follow-up ultrasound if 0.5 to 0.9 cm every year for 5 years. REFERENCES: Jaclyn FN, Rachel WD, Nicolas EG et al. ACR Thyroid Imaging, Reporting and Data System (TI-RADS): White Paper of the ACR TI-RADS Committee. J Am Nahid Radiol. 2017; 14: 587-595.
== END 2024-12-09 14:33 | disposition home or self-care (01) ==
LOC: RAD 14:36
PROVIDERS: PCP Family Medicine; Visit Provider Family Medicine
DX: E04.1 Nontoxic single thyroid nodule (principal)
CPT/HCPCS: 76536

== ENCOUNTER → 2025-03-03 10:29 | Outpatient (BNVA) | payer BC, SELFPAY | PROVIDERS: PCP Family Medicine; Visit Provider Obstetrics & Gynecology | DX: Z12.4 Encounter for screening for malignant neoplasm of cervix (principal) | CPT/HCPCS: 87624 ==

== ENCOUNTER → 2025-03-17 09:10 | Outpatient (BNVA) | payer BC, SELFPAY | PROVIDERS: PCP Family Medicine; Visit Provider Obstetrics & Gynecology | DX: N92.6 Irregular menstruation, unspecified (principal) | CPT/HCPCS: 76830 ==